=== PATIENT | female | born 1975 | race Caucasian/White ===

== ENCOUNTER 2017-08-25 11:45 | Inpatient (IN) | payer OTHER ==
[~2017-08-25] VITALS: Ht 162.6 cm; Wt 135.3 kg
[~2017-08-25 11:45] MED LIST: ATOR20 PO; CHOL10002 PO; CLIN300 PO; CYCL10 PO; DIAZ5 PO; FENO160 PO; INSULANPEN SC; LEVSOD150 PO; METCAR500 PO; METF500 PO; OXYC30ER PO; OXYC5 PO; Oxycontin60 MG; PIOG15 PO; PROBIOTIC1 EAC1 PO; PROCODE120 PO
[2017-08-25 16:08] LABS: BASOPHILS ABSOLUTE AUTO 0.07 K/mm3 (0.00-0.23); BASOPHILS PERCENT AUTO 1 % (0-2); EOSINOPHILS ABSOLUTE AUTO 0.22 K/mm3 (0.00-0.68); EOSINOPHILS PERCENT AUTO 2 % (0-6); Hemoglobin 13.2 g/dL (11.5-16.0); IMMATURE GRAN PERCENT AUTO 1 % (0-1); LYMPHOCYTES PERCENT AUTO 7 % (21-46); MONOCYTES ABSOLUTE AUTO 0.67 K/mm3 (0.16-1.47); MONOCYTES PERCENT AUTO 5 % (4-13); Mean Corpuscular HGB 29.1 pg (26.0-34.0); Mean Corpuscular Volume 88 fL (80-100); Mean Platelet Volume 9.2 fL (9.1-12.4); NEUTROPHILS ABSOLUTE AUTO 11.93 K/mm3 (1.96-9.15); NEUTROPHILS PERCENT AUTO 86 % (41-73); Platelet Count 331 K/mm3 (150-400); RDW Coefficient Variation 14.4 % (11.7-14.2); RDW Standard Deviation 46.7 fL (35.1-46.3); Red Blood Cell Count 4.54 M/mm3 (3.80-5.20); White Blood Cell Count 13.89 K/mm3 (4.00-11.30)
[2017-08-25 16:29] LABS: Albumin, Blood 3.1 g/dL (3.4-5.0); Albumin/Globulin Ratio 0.5 (0.8-1.8); Bilirubin, Total 0.8 mg/dL (0.1-1.0); Bun/Creatinine Ratio 16.2 (12.0-20.0); Calcium, Blood 9.8 mg/dL (8.5-10.1); Creatinine, Blood 1.6 mg/dL (0.40-1.00); Globulin, Blood 5.9 g/dL (2.2-4.0); Potassium, Blood 4.1 mmol/L (3.5-5.5)
[2017-08-25] MEDS ORDERED: LEVSOD150 PO (21:02)
[2017-08-25] MEDS ORDERED: ACET500 PO (21:05)
[2017-08-26 05:27] LABS: BASOPHILS ABSOLUTE AUTO 0.06 K/mm3 (0.00-0.23); BASOPHILS PERCENT AUTO 1 % (0-2); EOSINOPHILS ABSOLUTE AUTO 0.21 K/mm3 (0.00-0.68); EOSINOPHILS PERCENT AUTO 2 % (0-6); Hematocrit 33.8 % (33.0-51.0); Hemoglobin 11.1 g/dL (11.5-16.0); IMMATURE GRAN ABSOLUTE AUTO 0.11 K/mm3 (0.00-0.10); IMMATURE GRAN PERCENT AUTO 1 % (0-1); LYMPHOCYTES ABSOLUTE AUTO 0.76 K/mm3 (0.84-5.20); LYMPHOCYTES PERCENT AUTO 6 % (21-46); MONOCYTES ABSOLUTE AUTO 0.66 K/mm3 (0.16-1.47); MONOCYTES PERCENT AUTO 5 % (4-13); Mean Corpuscular HGB 28.5 pg (26.0-34.0); Mean Corpuscular HGB Conc 32.8 g/dL (31.5-36.5); Mean Corpuscular Volume 87 fL (80-100); Mean Platelet Volume 9.3 fL (9.1-12.4); NEUTROPHILS ABSOLUTE AUTO 11.07 K/mm3 (1.96-9.15); NEUTROPHILS PERCENT AUTO 86 % (41-73); Platelet Count 318 K/mm3 (150-400); RDW Coefficient Variation 14.4 % (11.7-14.2); RDW Standard Deviation 46.2 fL (35.1-46.3); White Blood Cell Count 12.87 K/mm3 (4.00-11.30)
[2017-08-26 05:49] LABS: Bun/Creatinine Ratio 16.1 (12.0-20.0); Creatinine, Blood 1.37 mg/dL (0.40-1.00); Potassium, Blood 3.8 mmol/L (3.5-5.5)
[2017-08-26 05:50] LABS: Calcium, Blood 8.5 mg/dL (8.5-10.1)
[2017-08-27 05:34] LABS: BASOPHILS ABSOLUTE AUTO 0.06 K/mm3 (0.00-0.23); BASOPHILS PERCENT AUTO 0 % (0-2); EOSINOPHILS ABSOLUTE AUTO 0.13 K/mm3 (0.00-0.68); EOSINOPHILS PERCENT AUTO 1 % (0-6); Hemoglobin 11.3 g/dL (11.5-16.0); IMMATURE GRAN ABSOLUTE AUTO 0.16 K/mm3 (0.00-0.10); IMMATURE GRAN PERCENT AUTO 1 % (0-1); LYMPHOCYTES ABSOLUTE AUTO 0.94 K/mm3 (0.84-5.20); LYMPHOCYTES PERCENT AUTO 7 % (21-46); MONOCYTES ABSOLUTE AUTO 0.89 K/mm3 (0.16-1.47); MONOCYTES PERCENT AUTO 7 % (4-13); Mean Corpuscular HGB 28.4 pg (26.0-34.0); Mean Corpuscular HGB Conc 33.2 g/dL (31.5-36.5); Mean Corpuscular Volume 85 fL (80-100); Mean Platelet Volume 9.4 fL (9.1-12.4); NEUTROPHILS ABSOLUTE AUTO 11.25 K/mm3 (1.96-9.15); NEUTROPHILS PERCENT AUTO 84 % (41-73); Platelet Count 330 K/mm3 (150-400); RDW Coefficient Variation 14.4 % (11.7-14.2); RDW Standard Deviation 45.1 fL (35.1-46.3); Red Blood Cell Count 3.98 M/mm3 (3.80-5.20); White Blood Cell Count 13.43 K/mm3 (4.00-11.30)
[2017-08-27 05:58] LABS: Bun/Creatinine Ratio 14.2 (12.0-20.0); Calcium, Blood 8.9 mg/dL (8.5-10.1); Creatinine, Blood 1.41 mg/dL (0.40-1.00); Potassium, Blood 3.8 mmol/L (3.5-5.5)
[2017-08-27 09:36] LABS: Vancomycin, Trough 24.3 ug/mL (5.0-10.0)
[2017-08-28 05:14] LABS: BASOPHILS ABSOLUTE AUTO 0.06 K/mm3 (0.00-0.23); BASOPHILS PERCENT AUTO 1 % (0-2); EOSINOPHILS ABSOLUTE AUTO 0.22 K/mm3 (0.00-0.68); EOSINOPHILS PERCENT AUTO 2 % (0-6); Hematocrit 32.5 % (33.0-51.0); Hemoglobin 10.7 g/dL (11.5-16.0); IMMATURE GRAN ABSOLUTE AUTO 0.28 K/mm3 (0.00-0.10); IMMATURE GRAN PERCENT AUTO 2 % (0-1); LYMPHOCYTES ABSOLUTE AUTO 1.09 K/mm3 (0.84-5.20); LYMPHOCYTES PERCENT AUTO 8 % (21-46); MONOCYTES ABSOLUTE AUTO 0.78 K/mm3 (0.16-1.47); MONOCYTES PERCENT AUTO 6 % (4-13); Mean Corpuscular HGB 28.6 pg (26.0-34.0); Mean Corpuscular HGB Conc 32.9 g/dL (31.5-36.5); Mean Corpuscular Volume 87 fL (80-100); Mean Platelet Volume 9.5 fL (9.1-12.4); NEUTROPHILS ABSOLUTE AUTO 10.52 K/mm3 (1.96-9.15); NEUTROPHILS PERCENT AUTO 81 % (41-73); Platelet Count 346 K/mm3 (150-400); RDW Coefficient Variation 14.6 % (11.7-14.2); RDW Standard Deviation 46.9 fL (35.1-46.3); Red Blood Cell Count 3.74 M/mm3 (3.80-5.20); White Blood Cell Count 12.95 K/mm3 (4.00-11.30)
[2017-08-28 05:37] LABS: Bun/Creatinine Ratio 14.6 (12.0-20.0); Calcium, Blood 9.1 mg/dL (8.5-10.1); Creatinine, Blood 1.37 mg/dL (0.40-1.00); Potassium, Blood 3.8 mmol/L (3.5-5.5)
[2017-08-29 09:05] LABS: Vancomycin, Trough 18.9 ug/mL (5.0-10.0)
[2017-08-31 10:27] LABS: Bun/Creatinine Ratio 15.9 (12.0-20.0); Calcium, Blood 8.4 mg/dL (8.5-10.1); Creatinine, Blood 1.38 mg/dL (0.40-1.00); Potassium, Blood 3.8 mmol/L (3.5-5.5)
[2017-08-31 11:32] LABS: Creatinine, Blood 1.38 mg/dL (0.40-1.00)
[2017-08-31 11:33] LABS: Vancomycin, Trough 24.4 ug/mL (5.0-10.0)
[2017-09-03 05:44] LABS: Bun/Creatinine Ratio 10.6 (12.0-20.0); Calcium, Blood 8.5 mg/dL (8.5-10.1); Creatinine, Blood 1.42 mg/dL (0.40-1.00)
[2017-09-04] MEDS ORDERED: ROXICODONE5 MG PO (13:20)
[2017-09-04] MEDS ORDERED: METF500 PO (13:20)
[2017-09-04] MEDS ORDERED: DOCU100 PO (13:21)
[2017-09-04] MEDS ORDERED: Pedi-Dri 100,0060 GM TOP (13:22)
[2017-09-04] MEDS ORDERED: Normal Saline Fl2 ML IR (13:23)
[2017-09-04] MEDS ORDERED: MIRALAX17 GM PO (13:23)
[2017-09-04] MEDS ORDERED: Augmentin 875-1 EACH PO (13:24)
[2017-09-04] MEDS ORDERED: Atarax10 MG PO (13:25)
[2017-11-13] MEDS ORDERED: HYDHCL25 PO (10:40)
[2018-03-07] MEDS ORDERED: PIOG15 PO (13:38)
[2018-03-07] MEDS ORDERED: INSULANPEN (13:38)
[2018-03-07] MEDS ORDERED: METF500C PO (13:38)
[2018-03-07] MEDS ORDERED: LEVSOD150 PO (13:39)
[2018-03-07] MEDS ORDERED: ATOR10 PO (13:39)
[2018-03-07] MEDS ORDERED: FENO160 PO (13:39)
[2018-03-07] MEDS ORDERED: CYCL10 (13:39)
[2018-03-07] MEDS ORDERED: OXYC5 (13:40)
[2018-03-07] MEDS ORDERED: PROMETH-CODEIN 65 ML (13:40)
[2018-03-07] MEDS ORDERED: HYDPAM100 (13:40)
[2018-03-07] MEDS ORDERED: CYCL10 PO (14:22)
== END 2017-09-04 18:10 | disposition home or self-care (01) | DRG 854 ==
LOC: ER 11:45 → MEDS 16:32
PROVIDERS: Emergency Medicine; Hospitalist; Internal Medicine; Surgery
PROC: 3E0234Z Introduction of Serum, Toxoid and Vaccine into Muscle, Percutaneous Approach (ICD-10-PCS; 2017-08-25)
PROC: 0JDB0ZZ Extraction of Perineum Subcutaneous Tissue and Fascia, Open Approach (ICD-10-PCS; principal; 2017-08-30 17:30)
DX: A41.9 Sepsis, unspecified organism (principal); L02.214 Cutaneous abscess of groin; E11.22 Type 2 diabetes mellitus with diabetic chronic kidney disease; N18.3 Chronic kidney disease, stage 3 (moderate); L03.314 Cellulitis of groin; Z68.43 Body mass index [BMI] 50.0-59.9, adult; E66.01 Morbid (severe) obesity due to excess calories; Z23 Encounter for immunization; E78.5 Hyperlipidemia, unspecified; E03.9 Hypothyroidism, unspecified; F17.210 Nicotine dependence, cigarettes, uncomplicated; G89.29 Other chronic pain; Z86.14 Personal history of Methicillin resistant Staphylococcus aureus infection
CPT/HCPCS: 36415; 72193; 80048; 80053; 80202; 82565; 82947; 85025; 87070; 87075; 87076; 87147; 87185; 87205; 88304; 93005; 93010; 96365; 96375; 99283; 99285; J0295; J1642; J1650; J1815; J1885; J2250; J2270; J2405; J2543; J3010; J3370; J3480; J7030; J7050; J7120; Q2038; Q9967

== ENCOUNTER 2017-09-07 13:23 | Day surgery (SDC) | payer OTHER ==
[~2017-09-07 13:23] MED LIST changes: +ACET500 PO; +Atarax10 MG PO; +Augmentin 875-1 EACH PO; +DOCU100 PO; +MIRALAX17 GM PO; +Normal Saline Fl2 ML IR; +Pedi-Dri 100,0060 GM TOP; +ROXICODONE5 MG PO
[2017-11-13] MEDS ORDERED: HYDHCL25 PO (10:40)
[2018-03-07] MEDS ORDERED: METF500C PO (13:38)
[2018-03-07] MEDS ORDERED: PIOG15 PO (13:38)
[2018-03-07] MEDS ORDERED: INSULANPEN (13:38)
[2018-03-07] MEDS ORDERED: FENO160 PO (13:39)
[2018-03-07] MEDS ORDERED: LEVSOD150 PO (13:39)
[2018-03-07] MEDS ORDERED: CYCL10 (13:39)
[2018-03-07] MEDS ORDERED: ATOR10 PO (13:39)
[2018-03-07] MEDS ORDERED: PROMETH-CODEIN 65 ML (13:40)
[2018-03-07] MEDS ORDERED: OXYC5 (13:40)
[2018-03-07] MEDS ORDERED: HYDPAM100 (13:40)
[2018-03-07] MEDS ORDERED: CYCL10 PO (14:22)
== END 2017-09-07 22:44 | disposition home or self-care (01) ==
LOC: WOUND 13:23
PROC: 2W13X6Z Compression of Abdominal Wall using Pressure Dressing (ICD-10-PCS; principal; 2017-09-07)
DX: Z48.00 Encounter for change or removal of nonsurgical wound dressing (principal); M79.3 Panniculitis, unspecified; E66.01 Morbid (severe) obesity due to excess calories; E05.90 Thyrotoxicosis, unspecified without thyrotoxic crisis or storm; E28.2 Polycystic ovarian syndrome
CPT/HCPCS: G0463

== ENCOUNTER 2017-09-14 11:00 | Day surgery (SDC) | payer OTHER ==
[2017-11-13] MEDS ORDERED: HYDHCL25 PO (10:40)
[2018-03-07] MEDS ORDERED: PIOG15 PO (13:38)
[2018-03-07] MEDS ORDERED: METF500C PO (13:38)
[2018-03-07] MEDS ORDERED: INSULANPEN (13:38)
[2018-03-07] MEDS ORDERED: FENO160 PO (13:39)
[2018-03-07] MEDS ORDERED: LEVSOD150 PO (13:39)
[2018-03-07] MEDS ORDERED: CYCL10 (13:39)
[2018-03-07] MEDS ORDERED: ATOR10 PO (13:39)
[2018-03-07] MEDS ORDERED: OXYC5 (13:40)
[2018-03-07] MEDS ORDERED: HYDPAM100 (13:40)
[2018-03-07] MEDS ORDERED: PROMETH-CODEIN 65 ML (13:40)
[2018-03-07] MEDS ORDERED: CYCL10 PO (14:22)
== END 2017-09-14 14:21 | disposition home or self-care (01) ==
LOC: WOUND 11:00
PROC: 2W13X6Z Compression of Abdominal Wall using Pressure Dressing (ICD-10-PCS; principal; 2017-09-14)
DX: Z48.00 Encounter for change or removal of nonsurgical wound dressing (principal); M79.3 Panniculitis, unspecified; E66.01 Morbid (severe) obesity due to excess calories; Z90.01 Acquired absence of eye; E11.65 Type 2 diabetes mellitus with hyperglycemia; E05.90 Thyrotoxicosis, unspecified without thyrotoxic crisis or storm

== ENCOUNTER 2017-09-22 00:42 | Day surgery (SDC) | payer OTHER ==
[2017-11-13] MEDS ORDERED: HYDHCL25 PO (10:40)
[2018-03-07] MEDS ORDERED: PIOG15 PO (13:38)
[2018-03-07] MEDS ORDERED: INSULANPEN (13:38)
[2018-03-07] MEDS ORDERED: METF500C PO (13:38)
[2018-03-07] MEDS ORDERED: ATOR10 PO (13:39)
[2018-03-07] MEDS ORDERED: LEVSOD150 PO (13:39)
[2018-03-07] MEDS ORDERED: CYCL10 (13:39)
[2018-03-07] MEDS ORDERED: FENO160 PO (13:39)
[2018-03-07] MEDS ORDERED: PROMETH-CODEIN 65 ML (13:40)
[2018-03-07] MEDS ORDERED: OXYC5 (13:40)
[2018-03-07] MEDS ORDERED: HYDPAM100 (13:40)
[2018-03-07] MEDS ORDERED: CYCL10 PO (14:22)
== END 2017-09-22 23:58 | disposition home or self-care (01) ==
LOC: WOUND 00:42
PROC: 2W13X6Z Compression of Abdominal Wall using Pressure Dressing (ICD-10-PCS; principal; 2017-09-22)
DX: Z48.01 Encounter for change or removal of surgical wound dressing (principal); M79.3 Panniculitis, unspecified; E66.01 Morbid (severe) obesity due to excess calories; E11.65 Type 2 diabetes mellitus with hyperglycemia; E05.90 Thyrotoxicosis, unspecified without thyrotoxic crisis or storm
CPT/HCPCS: G0463

== ENCOUNTER 2017-09-28 00:24 | Day surgery (SDC) | payer OTHER ==
[2017-11-13] MEDS ORDERED: HYDHCL25 PO (10:40)
[2018-03-07] MEDS ORDERED: PIOG15 PO (13:38)
[2018-03-07] MEDS ORDERED: METF500C PO (13:38)
[2018-03-07] MEDS ORDERED: INSULANPEN (13:38)
[2018-03-07] MEDS ORDERED: LEVSOD150 PO (13:39)
[2018-03-07] MEDS ORDERED: ATOR10 PO (13:39)
[2018-03-07] MEDS ORDERED: FENO160 PO (13:39)
[2018-03-07] MEDS ORDERED: CYCL10 (13:39)
[2018-03-07] MEDS ORDERED: HYDPAM100 (13:40)
[2018-03-07] MEDS ORDERED: PROMETH-CODEIN 65 ML (13:40)
[2018-03-07] MEDS ORDERED: OXYC5 (13:40)
[2018-03-07] MEDS ORDERED: CYCL10 PO (14:22)
== END 2017-09-28 23:13 | disposition home or self-care (01) ==
LOC: WOUND 00:24
PROC: 2W03X6Z Change Pressure Dressing on Abdominal Wall (ICD-10-PCS; principal; 2017-09-28)
DX: Z48.00 Encounter for change or removal of nonsurgical wound dressing (principal); L03.311 Cellulitis of abdominal wall; M79.3 Panniculitis, unspecified; E66.01 Morbid (severe) obesity due to excess calories; E03.9 Hypothyroidism, unspecified; Z86.14 Personal history of Methicillin resistant Staphylococcus aureus infection
CPT/HCPCS: 87081; G0463

== ENCOUNTER 2017-10-06 00:11 | Day surgery (SDC) | payer OTHER ==
[2017-11-13] MEDS ORDERED: HYDHCL25 PO (10:40)
[2018-03-07] MEDS ORDERED: PIOG15 PO (13:38)
[2018-03-07] MEDS ORDERED: INSULANPEN (13:38)
[2018-03-07] MEDS ORDERED: METF500C PO (13:38)
[2018-03-07] MEDS ORDERED: ATOR10 PO (13:39)
[2018-03-07] MEDS ORDERED: LEVSOD150 PO (13:39)
[2018-03-07] MEDS ORDERED: FENO160 PO (13:39)
[2018-03-07] MEDS ORDERED: CYCL10 (13:39)
[2018-03-07] MEDS ORDERED: HYDPAM100 (13:40)
[2018-03-07] MEDS ORDERED: OXYC5 (13:40)
[2018-03-07] MEDS ORDERED: PROMETH-CODEIN 65 ML (13:40)
[2018-03-07] MEDS ORDERED: CYCL10 PO (14:22)
== END 2017-10-06 22:51 | disposition home or self-care (01) ==
LOC: WOUND 00:11
PROC: 2W13X6Z Compression of Abdominal Wall using Pressure Dressing (ICD-10-PCS; principal; 2017-10-06)
DX: M79.3 Panniculitis, unspecified (principal); E66.01 Morbid (severe) obesity due to excess calories; E11.9 Type 2 diabetes mellitus without complications; Z86.14 Personal history of Methicillin resistant Staphylococcus aureus infection
CPT/HCPCS: 87070; 87075; 87077; 87147; 87186; 87205; G0463

== ENCOUNTER 2017-10-13 01:11 | Day surgery (SDC) | payer OTHER ==
[2017-11-13] MEDS ORDERED: HYDHCL25 PO (10:40)
[2018-03-07] MEDS ORDERED: PIOG15 PO (13:38)
[2018-03-07] MEDS ORDERED: METF500C PO (13:38)
[2018-03-07] MEDS ORDERED: INSULANPEN (13:38)
[2018-03-07] MEDS ORDERED: CYCL10 (13:39)
[2018-03-07] MEDS ORDERED: ATOR10 PO (13:39)
[2018-03-07] MEDS ORDERED: FENO160 PO (13:39)
[2018-03-07] MEDS ORDERED: LEVSOD150 PO (13:39)
[2018-03-07] MEDS ORDERED: PROMETH-CODEIN 65 ML (13:40)
[2018-03-07] MEDS ORDERED: OXYC5 (13:40)
[2018-03-07] MEDS ORDERED: HYDPAM100 (13:40)
[2018-03-07] MEDS ORDERED: CYCL10 PO (14:22)
== END 2017-10-13 13:26 | disposition home or self-care (01) ==
LOC: ATC 01:11
DX: Z45.2 Encounter for adjustment and management of vascular access device (principal); F17.210 Nicotine dependence, cigarettes, uncomplicated
CPT/HCPCS: 96523; J1642

== ENCOUNTER 2017-10-13 13:30 | Day surgery (SDC) | payer OTHER ==
[2017-11-13] MEDS ORDERED: HYDHCL25 PO (10:40)
[2018-03-07] MEDS ORDERED: PIOG15 PO (13:38)
[2018-03-07] MEDS ORDERED: INSULANPEN (13:38)
[2018-03-07] MEDS ORDERED: METF500C PO (13:38)
[2018-03-07] MEDS ORDERED: CYCL10 (13:39)
[2018-03-07] MEDS ORDERED: ATOR10 PO (13:39)
[2018-03-07] MEDS ORDERED: FENO160 PO (13:39)
[2018-03-07] MEDS ORDERED: LEVSOD150 PO (13:39)
[2018-03-07] MEDS ORDERED: HYDPAM100 (13:40)
[2018-03-07] MEDS ORDERED: OXYC5 (13:40)
[2018-03-07] MEDS ORDERED: PROMETH-CODEIN 65 ML (13:40)
[2018-03-07] MEDS ORDERED: CYCL10 PO (14:22)
== END 2017-10-13 22:58 | disposition home or self-care (01) ==
LOC: WOUND 13:30
PROC: 0W9F3ZZ Drainage of Abdominal Wall, Percutaneous Approach (ICD-10-PCS; principal; 2017-10-13)
PROC: 2W13X6Z Compression of Abdominal Wall using Pressure Dressing (ICD-10-PCS; principal; 2017-10-13)
DX: M79.3 Panniculitis, unspecified (principal); E66.01 Morbid (severe) obesity due to excess calories; Z22.322 Carrier or suspected carrier of Methicillin resistant Staphylococcus aureus; E11.65 Type 2 diabetes mellitus with hyperglycemia; E05.90 Thyrotoxicosis, unspecified without thyrotoxic crisis or storm
CPT/HCPCS: G0463

== ENCOUNTER 2017-10-20 00:51 | Day surgery (SDC) | payer OTHER ==
[2017-11-13] MEDS ORDERED: HYDHCL25 PO (10:40)
[2018-03-07] MEDS ORDERED: PIOG15 PO (13:38)
[2018-03-07] MEDS ORDERED: METF500C PO (13:38)
[2018-03-07] MEDS ORDERED: INSULANPEN (13:38)
[2018-03-07] MEDS ORDERED: FENO160 PO (13:39)
[2018-03-07] MEDS ORDERED: CYCL10 (13:39)
[2018-03-07] MEDS ORDERED: LEVSOD150 PO (13:39)
[2018-03-07] MEDS ORDERED: ATOR10 PO (13:39)
[2018-03-07] MEDS ORDERED: HYDPAM100 (13:40)
[2018-03-07] MEDS ORDERED: PROMETH-CODEIN 65 ML (13:40)
[2018-03-07] MEDS ORDERED: OXYC5 (13:40)
[2018-03-07] MEDS ORDERED: CYCL10 PO (14:22)
== END 2017-10-20 17:02 | disposition home or self-care (01) ==
LOC: WOUND 00:51
PROC: 2W13X6Z Compression of Abdominal Wall using Pressure Dressing (ICD-10-PCS; principal; 2017-10-20)
DX: M79.3 Panniculitis, unspecified (principal); E66.01 Morbid (severe) obesity due to excess calories; Z22.322 Carrier or suspected carrier of Methicillin resistant Staphylococcus aureus; E11.9 Type 2 diabetes mellitus without complications
CPT/HCPCS: G0463

== ENCOUNTER 2017-10-27 13:18 | Day surgery (SDC) | payer OTHER ==
[2017-11-13] MEDS ORDERED: HYDHCL25 PO (10:40)
[2018-03-07] MEDS ORDERED: PIOG15 PO (13:38)
[2018-03-07] MEDS ORDERED: INSULANPEN (13:38)
[2018-03-07] MEDS ORDERED: METF500C PO (13:38)
[2018-03-07] MEDS ORDERED: LEVSOD150 PO (13:39)
[2018-03-07] MEDS ORDERED: FENO160 PO (13:39)
[2018-03-07] MEDS ORDERED: CYCL10 (13:39)
[2018-03-07] MEDS ORDERED: ATOR10 PO (13:39)
[2018-03-07] MEDS ORDERED: HYDPAM100 (13:40)
[2018-03-07] MEDS ORDERED: PROMETH-CODEIN 65 ML (13:40)
[2018-03-07] MEDS ORDERED: OXYC5 (13:40)
[2018-03-07] MEDS ORDERED: CYCL10 PO (14:22)
== END 2017-10-27 15:59 | disposition home or self-care (01) ==
LOC: WOUND 13:18
PROC: 2W03X6Z Change Pressure Dressing on Abdominal Wall (ICD-10-PCS; principal; 2017-10-27)
DX: Z48.00 Encounter for change or removal of nonsurgical wound dressing (principal); E11.65 Type 2 diabetes mellitus with hyperglycemia; E11.622 Type 2 diabetes mellitus with other skin ulcer; L98.492 Non-pressure chronic ulcer of skin of other sites with fat layer exposed; M79.3 Panniculitis, unspecified; Z22.322 Carrier or suspected carrier of Methicillin resistant Staphylococcus aureus; E03.9 Hypothyroidism, unspecified; E28.2 Polycystic ovarian syndrome; R51 Headache; E66.01 Morbid (severe) obesity due to excess calories; Z68.43 Body mass index [BMI] 50.0-59.9, adult
CPT/HCPCS: G0463

== ENCOUNTER 2017-11-10 13:24 | Day surgery (SDC) | payer OTHER ==
[2017-11-13] MEDS ORDERED: HYDHCL25 PO (10:40)
== END 2017-11-10 22:48 | disposition home or self-care (01) ==
LOC: WOUND
DX: Z48.00 Encounter for change or removal of nonsurgical wound dressing (principal); M79.3 Panniculitis, unspecified; Z22.322 Carrier or suspected carrier of Methicillin resistant Staphylococcus aureus; E66.01 Morbid (severe) obesity due to excess calories; E11.9 Type 2 diabetes mellitus without complications; Z86.14 Personal history of Methicillin resistant Staphylococcus aureus infection
CPT/HCPCS: G0463

== ENCOUNTER 2017-11-21 00:26 | Day surgery (SDC) | payer OTHER ==
[~2017-11-21 00:26] MED LIST changes: +HYDHCL25 PO
== END 2017-11-21 22:53 | disposition home or self-care (01) ==
LOC: WOUND
DX: Z48.00 Encounter for change or removal of nonsurgical wound dressing (principal); M79.3 Panniculitis, unspecified; E66.01 Morbid (severe) obesity due to excess calories; Z22.322 Carrier or suspected carrier of Methicillin resistant Staphylococcus aureus; E11.9 Type 2 diabetes mellitus without complications; Z86.14 Personal history of Methicillin resistant Staphylococcus aureus infection
CPT/HCPCS: G0463

== ENCOUNTER 2017-11-28 13:53 | Day surgery (SDC) | payer OTHER | END 2017-11-28 22:52 | disposition home or self-care (01) | LOC: WOUND 13:53 | DX: Z48.00 Encounter for change or removal of nonsurgical wound dressing (principal); M79.3 Panniculitis, unspecified; E66.01 Morbid (severe) obesity due to excess calories; Z22.322 Carrier or suspected carrier of Methicillin resistant Staphylococcus aureus; E11.9 Type 2 diabetes mellitus without complications | CPT/HCPCS: G0463 ==

== ENCOUNTER 2017-12-13 00:43 | Day surgery (SDC) | payer OTHER | END 2017-12-13 10:30 | disposition home or self-care (01) | LOC: ATC 00:43 | DX: Z45.2 Encounter for adjustment and management of vascular access device (principal); E11.9 Type 2 diabetes mellitus without complications; E03.9 Hypothyroidism, unspecified | CPT/HCPCS: 96523; J1642 ==

== ENCOUNTER 2018-01-17 00:52 | Day surgery (SDC) | payer OTHER | END 2018-01-17 10:55 | disposition home or self-care (01) | LOC: ATC 00:52 | DX: Z45.2 Encounter for adjustment and management of vascular access device (principal); E11.9 Type 2 diabetes mellitus without complications; E03.9 Hypothyroidism, unspecified; Z79.4 Long term (current) use of insulin | CPT/HCPCS: 96523; J1642 ==

== ENCOUNTER 2018-03-14 00:18 | Day surgery (SDC) | payer OTHER ==
[~2018-03-14 00:18] MED LIST changes: +ATOR10 PO; +CYCL10; +HYDPAM100; +INSULANPEN; +METF500C PO; +OXYC5; +PROMETH-CODEIN 65 ML
[2018-03-14] MEDS ORDERED: AMOCLA500 PO (11:25)
== END 2018-03-14 11:30 | disposition home or self-care (01) ==
LOC: ATC 00:18
DX: Z45.2 Encounter for adjustment and management of vascular access device (principal); M79.3 Panniculitis, unspecified; E66.01 Morbid (severe) obesity due to excess calories; E11.9 Type 2 diabetes mellitus without complications; F17.210 Nicotine dependence, cigarettes, uncomplicated; Z79.4 Long term (current) use of insulin; Z91.81 History of falling
CPT/HCPCS: 96523; J1642

== ENCOUNTER 2018-04-26 00:27 | Day surgery (SDC) | payer OTHER ==
[~2018-04-26 00:27] MED LIST changes: +AMOCLA500 PO
[2018-04-26] MEDS ORDERED: CYCL10 PO (09:22)
== END 2018-04-26 09:30 | disposition home or self-care (01) ==
LOC: ATC 00:27
DX: Z45.2 Encounter for adjustment and management of vascular access device (principal)
CPT/HCPCS: 96523; J1642

== ENCOUNTER 2018-08-06 00:03 | Day surgery (SDC) | payer OTHER | END 2018-08-06 13:46 | disposition home or self-care (01) | LOC: ATC 00:03 | DX: Z45.2 Encounter for adjustment and management of vascular access device (principal); Z22.322 Carrier or suspected carrier of Methicillin resistant Staphylococcus aureus | CPT/HCPCS: 96523; J1642 ==

== ENCOUNTER 2018-10-30 23:56 | Emergency (ER) | payer OTHER ==
[~2018-10-30] VITALS: Ht 162.6 cm; Wt 131.5 kg
[2018-10-31 01:00] LABS: Calcium, Ionized (POC) 1.19 mmol/L (1.10-1.46); Chloride (POC) 102 mmol/L (98-108); Creatinine (POC) 1.5 mg/dL (0.6-1.0); Glucose (ISTAT POC) 131 mg/dL (70-99); Hemoglobin (POC) 12.9 g/dL (12.0-16.0); Potassium (POC) 3.9 mmol/L (3.5-5.5); Sodium (POC) 137 mmol/L (135-148); Total CO2 (POC) 23 mmol/L (21-32)
[2018-10-31] MEDS ORDERED: Vibramycin100 MG PO (01:07)
[2018-10-31] MEDS ORDERED: CEPH500 PO (01:07)
== END 2018-10-31 01:20 | disposition home or self-care (01) ==
LOC: ER 23:56
PROVIDERS: Physician Assistant
DX: L03.311 Cellulitis of abdominal wall (principal); Z88.2 Allergy status to sulfonamides; Z79.899 Other long term (current) drug therapy; Z79.4 Long term (current) use of insulin; Z79.891 Long term (current) use of opiate analgesic; E11.9 Type 2 diabetes mellitus without complications; F17.210 Nicotine dependence, cigarettes, uncomplicated
CPT/HCPCS: 36415; 80047; 85014; 99283

== ENCOUNTER 2019-05-23 23:42 | Emergency (ER) | payer OTHER ==
[~2019-05-23] VITALS: Ht 162.6 cm; Wt 127.0 kg
[~2019-05-23 23:42] MED LIST changes: +CEPH500 PO; +Vibramycin100 MG PO
[2019-05-24 00:50] LABS: Source, Urine Clean Catch
[2019-05-24 00:52] LABS: Appearance, Urine Cloudy (Clear); Bilirubin, Urine Neg (Neg); Blood, Urine 4+ (Neg); Color, Urine Yellow (P-Yellow); Glucose Qualitative, Urine Neg (Neg); Ketones, Urine Neg (Neg); Leukocyte Esterase, Urine 3+ (Neg); Nitrite, Urine Pos (Neg); Protein, Urine 3+ (Neg); Specific Gravity, Urine 1.015 (1.003-1.022); Urobilinogen, Urine NORM (Normal)
[2019-05-24 00:58] LABS: Bacteria Many /hpf; Red Blood Cells, Urine Rare /hpf (0-2); Squamous Epithelial Cells Few /hpf (Few); White Blood Cells, Urine TNTC /hpf (0-5)
[2019-05-24 01:50] LABS: Albumin, Blood 3.1 g/dL (3.4-5.0); Albumin/Globulin Ratio 0.7 (0.8-1.8); Bilirubin, Total 0.4 mg/dL (0.1-1.0); Bun/Creatinine Ratio 18.1 (12.0-20.0); Calcium, Blood 8.8 mg/dL (8.5-10.1); Creatinine, Blood 1.55 mg/dL (0.40-1.00); Globulin, Blood 4.6 g/dL (2.2-4.0); Potassium, Blood 3.7 mmol/L (3.5-5.5); Total Protein, Blood 7.7 g/dL (6.4-8.2)
[2019-05-24 01:53] LABS: BASOPHILS ABSOLUTE AUTO 0.07 K/mm3 (0.00-0.23); BASOPHILS PERCENT AUTO 1 % (0-2); EOSINOPHILS ABSOLUTE AUTO 0.22 K/mm3 (0.00-0.68); EOSINOPHILS PERCENT AUTO 3 % (0-6); Hemoglobin 10.4 g/dL (11.5-16.0); IMMATURE GRAN ABSOLUTE AUTO 0.33 K/mm3 (0.00-0.10); IMMATURE GRAN PERCENT AUTO 4 % (0-1); LYMPHOCYTES ABSOLUTE AUTO 1.48 K/mm3 (0.84-5.20); LYMPHOCYTES PERCENT AUTO 17 % (21-46); MONOCYTES ABSOLUTE AUTO 0.37 K/mm3 (0.16-1.47); MONOCYTES PERCENT AUTO 4 % (4-13); Mean Corpuscular HGB 29.3 pg (26.0-34.0); Mean Corpuscular HGB Conc 32.5 g/dL (31.5-36.5); Mean Corpuscular Volume 90 fL (80-100); NEUTROPHILS ABSOLUTE AUTO 6.16 K/mm3 (1.96-9.15); NEUTROPHILS PERCENT AUTO 72 % (41-73); NRBC ABSOLUTE 0.02 K/mm3 (0.00-0.02); NRBC Auto 0.2 /100 WBC (0.0-0.2); RDW Coefficient Variation 15.7 % (11.7-14.2); RDW Standard Deviation 51.9 fL (35.1-46.3); Red Blood Cell Count 3.55 M/mm3 (3.80-5.20); White Blood Cell Count 8.63 K/mm3 (4.00-11.30)
[2019-05-24 01:54] LABS: Mean Platelet Volume 9.8 fL (9.1-12.4); Platelet Count 213 K/mm3 (150-400)
[2019-05-24] MEDS ORDERED: Keflex500 MG PO (02:07)
== END 2019-05-24 02:53 | disposition home or self-care (01) ==
LOC: ER 23:42
PROVIDERS: Emergency Medicine
DX: N39.0 Urinary tract infection, site not specified (principal); E86.0 Dehydration; E66.01 Morbid (severe) obesity due to excess calories; E11.9 Type 2 diabetes mellitus without complications; C64.9 Malignant neoplasm of unspecified kidney, except renal pelvis; E05.90 Thyrotoxicosis, unspecified without thyrotoxic crisis or storm; F17.210 Nicotine dependence, cigarettes, uncomplicated; Z68.42 Body mass index [BMI] 45.0-49.9, adult; Z88.2 Allergy status to sulfonamides; Z79.899 Other long term (current) drug therapy; Z79.4 Long term (current) use of insulin
CPT/HCPCS: 36415; 80053; 81001; 81025; 85025; 87077; 87086; 87186; 96365; 99284-25; A9270-GY; J0696; J7030

== ENCOUNTER 2019-09-13 21:38 | Emergency (ER) | payer OTHER ==
[~2019-09-13] VITALS: Ht 162.6 cm; Wt 127.0 kg
[~2019-09-13 21:38] MED LIST changes: +Keflex500 MG PO
== END 2019-09-13 23:51 | disposition home or self-care (01) ==
LOC: ER 21:38
DX: S80.02XA Contusion of left knee, initial encounter (principal); S30.0XXA Contusion of lower back and pelvis, initial encounter; E11.9 Type 2 diabetes mellitus without complications; F17.210 Nicotine dependence, cigarettes, uncomplicated; Z79.4 Long term (current) use of insulin; Z79.899 Other long term (current) drug therapy; W01.0XXA Fall on same level from slipping, tripping and stumbling without subsequent striking against object, initial encounter
CPT/HCPCS: 73564; 99283-25; A9270

== ENCOUNTER → 2019-10-12 | Outpatient (CLI) | payer OTHER | LOC: LAB 09:27 → LAB SHORT 09:27 | DX: N39.0 Urinary tract infection, site not specified (principal) | CPT/HCPCS: 87077; 87086; 87186 ==

== ENCOUNTER 2020-01-12 23:46 | Emergency (ER) | payer OTHER ==
[~2020-01-12] VITALS: Ht 162.6 cm; Wt 130.2 kg
[2020-01-13] MEDS ORDERED: BASAGLAR K100 UNIT/1 (00:08)
[2020-01-13] MEDS ORDERED: Cleocin HCl300 MG PO (00:17)
== END 2020-01-13 00:27 | disposition home or self-care (01) ==
LOC: ER 23:46
DX: L03.116 Cellulitis of left lower limb (principal); L02.416 Cutaneous abscess of left lower limb; Z88.2 Allergy status to sulfonamides; Z91.018 Allergy to other foods; Z79.4 Long term (current) use of insulin; Z79.899 Other long term (current) drug therapy; E11.9 Type 2 diabetes mellitus without complications; E66.9 Obesity, unspecified; Z68.42 Body mass index [BMI] 45.0-49.9, adult; F17.210 Nicotine dependence, cigarettes, uncomplicated
CPT/HCPCS: 99282

== ENCOUNTER → 2020-09-19 | Outpatient (CLI) | payer OTHER ==
[~2020-09-19] MED LIST changes: +BASAGLAR K100 UNIT/1; +CEFD300 PO; +Cleocin HCl300 MG PO; +IBU600 MG PO
== END ==
LOC: LAB SHORT 11:30 → LAB 11:30
DX: N12 Tubulo-interstitial nephritis, not specified as acute or chronic (principal)
CPT/HCPCS: 87077; 87086; 87186

== ENCOUNTER 2020-12-15 01:47 | Emergency (ER) | payer OTHER ==
[~2020-12-15] VITALS: Ht 162.6 cm; Wt 131.5 kg
[~2020-12-15 01:47] MED LIST changes: -CEFD300 PO; -IBU600 MG PO
[2020-12-15 02:22] LABS: Source, Urine Clean Catch
[2020-12-15 02:33] LABS: Appearance, Urine Hazy (Clear); Bilirubin, Urine Neg (Neg); Blood, Urine 2+ (Neg); Color, Urine Yellow (P-Yellow); Glucose Qualitative, Urine Neg (Neg); Ketones, Urine 1+ (Neg); Leukocyte Esterase, Urine 3+ (Neg); Nitrite, Urine Neg (Neg); Protein, Urine 2+ (Neg); Specific Gravity, Urine 1.025 (1.003-1.022); Urobilinogen, Urine NORM (Normal)
[2020-12-15 02:43] LABS: BASOPHILS ABSOLUTE AUTO 0.07 K/mm3 (0.00-0.23); BASOPHILS PERCENT AUTO 1 % (0-2); EOSINOPHILS ABSOLUTE AUTO 0.14 K/mm3 (0.00-0.68); EOSINOPHILS PERCENT AUTO 2 % (0-6); Hematocrit 36.3 % (33.0-51.0); Hemoglobin 12.2 g/dL (11.5-16.0); IMMATURE GRAN ABSOLUTE AUTO 0.09 K/mm3 (0.00-0.10); IMMATURE GRAN PERCENT AUTO 1 % (0-1); LYMPHOCYTES ABSOLUTE AUTO 1.35 K/mm3 (0.84-5.20); LYMPHOCYTES PERCENT AUTO 16 % (21-46); MONOCYTES ABSOLUTE AUTO 0.42 K/mm3 (0.16-1.47); MONOCYTES PERCENT AUTO 5 % (4-13); Mean Corpuscular HGB 30.4 pg (26.0-34.0); Mean Corpuscular HGB Conc 33.6 g/dL (31.5-36.5); Mean Corpuscular Volume 91 fL (80-100); Mean Platelet Volume 9.4 fL (9.1-12.4); NEUTROPHILS ABSOLUTE AUTO 6.64 K/mm3 (1.96-9.15); NEUTROPHILS PERCENT AUTO 76 % (41-73); Platelet Count 288 K/mm3 (150-400); RDW Coefficient Variation 15.5 % (11.7-14.2); RDW Standard Deviation 51.1 fL (35.1-46.3); Red Blood Cell Count 4.01 M/mm3 (3.80-5.20); White Blood Cell Count 8.71 K/mm3 (4.00-11.30)
[2020-12-15 02:49] LABS: Bacteria Many /hpf; Red Blood Cells, Urine 0-2 /hpf (0-2); Squamous Epithelial Cells Not Seen /hpf (Few); White Blood Cells, Urine TNTC /hpf (0-5)
[2020-12-15 02:57] LABS: Alanine Aminotransfer (ALT/SGP 21 U/L (12-78); Albumin, Blood 3.7 g/dL (3.4-5.0); Albumin/Globulin Ratio 0.9 (0.8-1.8); Alk Phos 68 U/L (50-136); Anion Gap 9 mmol/L (6-16); Aspartate Aminotrans (AST/SGOT 21 U/L (12-37); Bilirubin, Total 0.4 mg/dL (0.1-1.0); Blood Urea Nitrogen 16 mg/dL (8-24); Bun/Creatinine Ratio 13.4 (12.0-20.0); CO2, Blood 24 mmol/L (21-32); Calcium, Blood 10.2 mg/dL (8.5-10.1); Chloride, Blood 100 mmol/L (98-108); Creatinine, Blood 1.19 mg/dL (0.40-1.00); Globulin, Blood 3.9 g/dL (2.2-4.0); Glomerular Filtration Rate 52 (60-); Glucose, Blood 234 mg/dL (70-99); Potassium, Blood 3.8 mmol/L (3.5-5.5); Sodium, Blood 133 mmol/L (136-145); Total Protein, Blood 7.6 g/dL (6.4-8.2)
[2020-12-15] MEDS ORDERED: CEFD300 PO (03:34)
[2020-12-15] MEDS ORDERED: IBU600 MG PO (03:34)
== END 2020-12-15 04:08 | disposition home or self-care (01) ==
LOC: ER 01:47
PROVIDERS: Emergency Medicine
DX: N39.0 Urinary tract infection, site not specified (principal); N83.202 Unspecified ovarian cyst, left side; N83.201 Unspecified ovarian cyst, right side; E11.9 Type 2 diabetes mellitus without complications; E03.9 Hypothyroidism, unspecified; F17.210 Nicotine dependence, cigarettes, uncomplicated; Z88.2 Allergy status to sulfonamides; Z91.018 Allergy to other foods; Z79.4 Long term (current) use of insulin; Z79.899 Other long term (current) drug therapy
CPT/HCPCS: 36415; 76830; 76856; 80053; 81001; 81025; 85025; 87077; 87086; 87186; 96374; 96375; 99284-25; J0696; J1885; J2270

== ENCOUNTER 2021-02-22 23:19 | Emergency (ER) | payer OTHER ==
[~2021-02-22] VITALS: Ht 162.6 cm; Wt 129.3 kg
[~2021-02-22 23:19] MED LIST changes: +CEFD300 PO; +IBU600 MG PO
== END 2021-02-23 02:43 | disposition home or self-care (01) ==
LOC: ER 23:19
DX: S93.402A Sprain of unspecified ligament of left ankle, initial encounter (principal); E11.9 Type 2 diabetes mellitus without complications; E03.9 Hypothyroidism, unspecified; F17.210 Nicotine dependence, cigarettes, uncomplicated; X50.1XXA Overexertion from prolonged static or awkward postures, initial encounter
CPT/HCPCS: 73610; 99283-25

== ENCOUNTER 2021-03-06 00:38 | Emergency (ER) | payer OTHER ==
[~2021-03-06] VITALS: Ht 162.6 cm; Wt 133.8 kg
== END 2021-03-06 04:50 | disposition home or self-care (01) ==
LOC: ER 00:38
DX: S99.912A Unspecified injury of left ankle, initial encounter (principal); E11.40 Type 2 diabetes mellitus with diabetic neuropathy, unspecified; E03.9 Hypothyroidism, unspecified; F17.210 Nicotine dependence, cigarettes, uncomplicated; Z88.2 Allergy status to sulfonamides; Z91.018 Allergy to other foods; Z79.899 Other long term (current) drug therapy; Z79.4 Long term (current) use of insulin; X58.XXXA Exposure to other specified factors, initial encounter
CPT/HCPCS: 99283; A9270

== ENCOUNTER → 2021-05-21 | Outpatient (CLI) | payer OTHER | END | disposition home or self-care (01) | LOC: LAB 13:57 → LAB SHORT 13:57 | DX: Z09 Encounter for follow-up examination after completed treatment for conditions other than malignant neoplasm (principal); Z87.440 Personal history of urinary (tract) infections | CPT/HCPCS: 87077; 87086; 87186 ==

== ENCOUNTER → 2021-10-09 | Outpatient (CLI) | payer OTHER | END | disposition home or self-care (01) | LOC: LAB 11:02 → LAB SHORT 11:02 | DX: R30.0 Dysuria (principal) | CPT/HCPCS: 87077; 87086; 87186 ==

== ENCOUNTER → 2021-10-29 | Outpatient (CLI) | payer OTHER | LOC: LAB SHORT 12:10 | DX: L03.90 Cellulitis, unspecified (principal); E11.9 Type 2 diabetes mellitus without complications; Z79.84 Long term (current) use of oral hypoglycemic drugs; Z79.4 Long term (current) use of insulin | CPT/HCPCS: 82043; 87070; 87075; 87077; 87147; 87186; 87205 ==

== ENCOUNTER → 2021-12-10 | Outpatient (CLI) | payer OTHER | LOC: LAB 11:32 → LAB SHORT 11:32 | DX: B99.9 Unspecified infectious disease (principal); B95.62 Methicillin resistant Staphylococcus aureus infection as the cause of diseases classified elsewhere | CPT/HCPCS: 87070; 87075; 87077; 87106; 87186; 87205 ==

== ENCOUNTER 2022-03-06 21:42 | Emergency (ER) | payer OTHER ==
[~2022-03-06] VITALS: Ht 162.6 cm; Wt 131.5 kg
== END 2022-03-07 00:17 | disposition home or self-care (01) ==
LOC: ER 21:42
DX: M79.671 Pain in right foot (principal); S90.851A Superficial foreign body, right foot, initial encounter; E11.9 Type 2 diabetes mellitus without complications; E05.90 Thyrotoxicosis, unspecified without thyrotoxic crisis or storm; F17.210 Nicotine dependence, cigarettes, uncomplicated; Z88.2 Allergy status to sulfonamides; Z91.018 Allergy to other foods; Z79.899 Other long term (current) drug therapy; Z79.4 Long term (current) use of insulin; X58.XXXA Exposure to other specified factors, initial encounter
CPT/HCPCS: 73630

== ENCOUNTER → 2022-06-11 | Outpatient (CLI) | payer OTHER | END | disposition home or self-care (01) | LOC: LAB 09:30 → LAB SHORT 09:30 | DX: R30.0 Dysuria (principal) | CPT/HCPCS: 87077; 87086; 87186 ==

== ENCOUNTER 2022-12-03 21:53 | Emergency (ER) | payer OTHER ==
[~2022-12-03] VITALS: Ht 162.6 cm; Wt 113.4 kg
[2022-12-03 22:36] LABS: BASOPHILS ABSOLUTE AUTO 0.07 K/mm3 (0.00-0.23); BASOPHILS PERCENT AUTO 1 % (0-2); EOSINOPHILS ABSOLUTE AUTO 0.27 K/mm3 (0.00-0.68); EOSINOPHILS PERCENT AUTO 2 % (0-6); IMMATURE GRAN ABSOLUTE AUTO 0.05 K/mm3 (0.00-0.10); IMMATURE GRAN PERCENT AUTO 0 % (0-1); LYMPHOCYTES ABSOLUTE AUTO 0.71 K/mm3 (0.84-5.20); LYMPHOCYTES PERCENT AUTO 6 % (21-46); MONOCYTES ABSOLUTE AUTO 0.53 K/mm3 (0.16-1.47); MONOCYTES PERCENT AUTO 5 % (4-13); Mean Corpuscular HGB 28.8 pg (26.0-34.0); Mean Corpuscular HGB Conc 32.4 g/dL (31.5-36.5); Mean Corpuscular Volume 89 fL (80-100); NEUTROPHILS ABSOLUTE AUTO 10.24 K/mm3 (1.96-9.15); NEUTROPHILS PERCENT AUTO 86 % (41-73); Platelet Count 282 K/mm3 (150-400); RDW Coefficient Variation 14.8 % (11.7-14.2); RDW Standard Deviation 47.8 fL (35.1-46.3); Red Blood Cell Count 4.16 M/mm3 (3.80-5.20); White Blood Cell Count 11.87 K/mm3 (4.00-11.30)
[2022-12-03 22:44] LABS: Source, Urine Clean Catch
[2022-12-03 22:59] LABS: Albumin, Blood 3.5 g/dL (3.4-5.0); Albumin/Globulin Ratio 0.9 (0.8-1.8); Bilirubin, Total 0.5 mg/dL (0.1-1.0); Bun/Creatinine Ratio 19.5 (12.0-20.0); Calcium, Blood 9.7 mg/dL (8.5-10.1); Creatinine, Blood 1.33 mg/dL (0.40-1.00); Globulin, Blood 3.9 g/dL (2.2-4.0); Potassium, Blood 3.9 mmol/L (3.5-5.5); Total Protein, Blood 7.4 g/dL (6.4-8.2)
[2022-12-03 23:02] LABS: Bilirubin, Urine Neg (Neg); Blood, Urine 4+ (Neg); Glucose Qualitative, Urine 4+ (Neg); Ketones, Urine Neg (Neg); Leukocyte Esterase, Urine 3+ (Neg); Nitrite, Urine Pos (Neg); Protein, Urine 3+ (Neg); Specific Gravity, Urine 1.015 (1.003-1.022); Urobilinogen, Urine NORM (Normal)
[2022-12-03 23:19] LABS: Appearance, Urine Cloudy (Clear); Color, Urine Yellow (P-Yellow)
[2022-12-03] MEDS ORDERED: SEMGLEE (Y100 UNIT/2 SC (23:19)
[2022-12-03] MEDS ORDERED: JARDIANCE25 MG PO (23:20)
[2022-12-03] MEDS ORDERED: BENZ100A PO (23:20)
[2022-12-03] MEDS ORDERED: VITAMIN D5000 UNIT PO (23:21)
[2022-12-03] MEDS ORDERED: ESCI10 (23:21)
[2022-12-03 23:23] LABS: Bacteria Many /hpf; Red Blood Cells, Urine 25-50 /hpf (0-2); Squamous Epithelial Cells Rare /hpf (Few); White Blood Cells, Urine TNTC /hpf (0-5)
[2022-12-03] MEDS ORDERED: CEPH500 PO (23:51)
[2022-12-04] VITALS: BP 142/63
== END 2022-12-04 00:35 | disposition home or self-care (01) ==
LOC: ER 21:53
PROVIDERS: Physician Assistant
DX: N12 Tubulo-interstitial nephritis, not specified as acute or chronic (principal); Z88.2 Allergy status to sulfonamides; Z91.018 Allergy to other foods; Z79.899 Other long term (current) drug therapy; Z79.84 Long term (current) use of oral hypoglycemic drugs
CPT/HCPCS: 36415; 80053; 81001; 85025; 87086; 87186; 96374; 99284-25; A9270; J0696

== ENCOUNTER → 2023-08-25 | Outpatient (CLI) | payer OTHER ==
[~2023-08-25] MED LIST changes: +BENZ100A PO; +ESCI10; +JARDIANCE25 MG PO; +SEMGLEE (Y100 UNIT/2 SC; +VITAMIN D5000 UNIT PO
== END ==
LOC: LAB 14:35 → LAB SHORT 14:35
PROVIDERS: Family Medicine
DX: Z12.4 Encounter for screening for malignant neoplasm of cervix (principal)
CPT/HCPCS: G0123

== ENCOUNTER → 2024-08-24 | Outpatient (CLI) | payer OTHER | LOC: LAB 12:09 → LAB SHORT 12:09 | DX: A49.02 Methicillin resistant Staphylococcus aureus infection, unspecified site (principal) | CPT/HCPCS: 87070; 87075; 87077; 87147; 87186; 87205 ==

== ENCOUNTER 2024-12-21 19:25 | Observation (INO) | payer OTHER ==
[~2024-12-21] VITALS: Ht 162.6 cm; Wt 110.9 kg
[~2024-12-21 19:25] MED LIST changes: -ATOR10 PO; +Enoxaparin 40 MG/0.4 ML SYR SC SCH; +GLUCOPHAGE1000 M1 PO; -METF500C PO
[2024-12-21 20:13] LABS: BASOPHILS ABSOLUTE AUTO 0.07 K/mm3 (0.00-0.23); BASOPHILS PERCENT AUTO 1 % (0-2); EOSINOPHILS ABSOLUTE AUTO 0.12 K/mm3 (0.00-0.68); EOSINOPHILS PERCENT AUTO 1 % (0-6); Hematocrit 37.6 % (33.0-51.0); Hemoglobin 12.5 g/dL (11.5-16.0); IMMATURE GRAN ABSOLUTE AUTO 0.07 K/mm3 (0.00-0.10); IMMATURE GRAN PERCENT AUTO 1 % (0-1); LYMPHOCYTES ABSOLUTE AUTO 0.67 K/mm3 (0.84-5.20); LYMPHOCYTES PERCENT AUTO 6 % (21-46); MONOCYTES ABSOLUTE AUTO 0.59 K/mm3 (0.16-1.47); MONOCYTES PERCENT AUTO 5 % (4-13); Mean Corpuscular HGB 27.7 pg (26.0-34.0); Mean Corpuscular HGB Conc 33.2 g/dL (31.5-36.5); Mean Corpuscular Volume 83 fL (80-100); Mean Platelet Volume 9.1 fL (9.1-12.4); NEUTROPHILS PERCENT AUTO 87 % (41-73); Platelet Count 253 K/mm3 (150-400); RDW Standard Deviation 48.5 fL (35.1-46.3); Red Blood Cell Count 4.51 M/mm3 (3.80-5.20); White Blood Cell Count 11.82 K/mm3 (4.00-11.30)
[2024-12-21 20:22] LABS: Source, Urine Clean Catch
[2024-12-21 20:40] LABS: Appearance, Urine Hazy (Clear); Bilirubin, Urine Neg (Neg); Blood, Urine 4+ (Neg); Glucose Qualitative, Urine 4+ (Neg); Ketones, Urine Neg (Neg); Leukocyte Esterase, Urine 3+ (Neg); Nitrite, Urine Pos (Neg); Protein, Urine 3+ (Neg); Specific Gravity, Urine 1.015 (1.003-1.022); Urobilinogen, Urine NORM (Normal)
[2024-12-21 20:45] LABS: Color, Urine Yellow (P-Yellow)
[2024-12-21 20:47] LABS: White Blood Cells, Urine TNTC /hpf (0-5)
[2024-12-21 20:48] LABS: Bacteria Many /hpf; Squamous Epithelial Cells Few /hpf (Few)
[2024-12-21 21:00] LABS: Albumin/Globulin Ratio 0.3 (0.8-1.8); Bilirubin, Total 0.6 mg/dL (0.1-1.0); Calcium, Blood 10.3 mg/dL (8.5-10.1); Creatinine, Blood 1.11 mg/dL (0.40-1.00); Globulin, Blood 5.9 g/dL (2.2-4.0); Potassium, Blood 4.1 mmol/L (3.5-5.5); Total Protein, Blood 7.9 g/dL (6.4-8.2)
[2024-12-21] MEDS ORDERED: Ketorolac Tromethamine 30mg Vial IV ONE (21:15)
[2024-12-21] MEDS ORDERED: NS 1,000 ML IV SCH ×2 (21:15→23:25)
[2024-12-21] MEDS ORDERED: CefTRIAXone Sodium 1,000 MG in NS 50 ML IV ONE (21:25)
[2024-12-21] MEDS ORDERED: Morphine Sulfate 4 MG/1 ML Injection IV ONE (22:00)
[2024-12-21] MEDS ORDERED: BENZ100A PO (23:08)
[2024-12-21] MEDS ORDERED: Chantix1 MG PO (23:08)
[2024-12-21] MEDS ORDERED: ESCI10 PO (23:10)
[2024-12-21] MEDS ORDERED: JARDIANCE25 MG PO (23:11)
[2024-12-21] MEDS ORDERED: LISI5 PO (23:14)
[2024-12-21] MEDS ORDERED: INSULANPEN SC (23:15)
[2024-12-21] MEDS ORDERED: Acetaminophen 325 MG TABLET PO PRN (23:25)
[2024-12-21] MEDS ORDERED: Ondansetron HCl 2 MG / ML 2ML Vial IV PRN (23:25)
[2024-12-21] MEDS ORDERED: FentaNYL Citrate 50 MCG/ML 2 ML Injection IV PRN (23:25)
[2024-12-21] MEDS ORDERED: Enoxaparin 40 MG/0.4 ML SYR SC SCH (23:48)
[2024-12-21 23:50] VITALS: BP 153/90
[2024-12-21] MEDS ORDERED: Albumin (Human) 25gm/100ml 100 ML IV ONE (23:55)
[2024-12-21] MEDS ORDERED: BASAGLAR K100 UNIT/1 SC (23:57)
[2024-12-22 04:04] VITALS: BP 140/69
--- NOTE | 2024-12-22 04:26 | NUR ---
PT ADMITTED FROM ED WITH LEFT FLANK PAIN, IS FAMILIAR WITH THIS SHE HAS THESE TYPE OF INFECTIONS FREQUENTLY. PT ON IVABX, IVF, AND IS CURRENTLY NPO FOR POTENTIAL FURTHER TESTING/ PROCEDURES. SHE HAS RECIEVED ALBUMIN THIS SHIFT, DENIES PAIN. TELE IS NSR IN 80'S, HAS CMG ON RIGHT ARM AND BG WAS 141 WHEN ARRIVED TO UNIT. INDEPENDENT WITH MOBILITY IN ROOM. LIVES WITH SPOUSE.
[2024-12-22 05:43] LABS: BASOPHILS ABSOLUTE AUTO 0.05 K/mm3 (0.00-0.23); BASOPHILS PERCENT AUTO 1 % (0-2); EOSINOPHILS PERCENT AUTO 1 % (0-6); Hematocrit 34.4 % (33.0-51.0); Hemoglobin 11.1 g/dL (11.5-16.0); IMMATURE GRAN ABSOLUTE AUTO 0.06 K/mm3 (0.00-0.10); IMMATURE GRAN PERCENT AUTO 1 % (0-1); LYMPHOCYTES ABSOLUTE AUTO 0.51 K/mm3 (0.84-5.20); LYMPHOCYTES PERCENT AUTO 7 % (21-46); MONOCYTES ABSOLUTE AUTO 0.44 K/mm3 (0.16-1.47); MONOCYTES PERCENT AUTO 6 % (4-13); Mean Corpuscular HGB Conc 32.3 g/dL (31.5-36.5); Mean Corpuscular Volume 87 fL (80-100); Mean Platelet Volume 9.5 fL (9.1-12.4); NEUTROPHILS ABSOLUTE AUTO 6.41 K/mm3 (1.96-9.15); NEUTROPHILS PERCENT AUTO 85 % (41-73); Platelet Count 209 K/mm3 (150-400); RDW Coefficient Variation 15.9 % (11.7-14.2); Red Blood Cell Count 3.97 M/mm3 (3.80-5.20); White Blood Cell Count 7.57 K/mm3 (4.00-11.30)
[2024-12-22 06:02] LABS: Albumin, Blood 3.7 g/dL (3.4-5.0); Albumin/Globulin Ratio 1.1 (0.8-1.8); Bilirubin, Total 0.4 mg/dL (0.1-1.0); Bun/Creatinine Ratio 27.3 (12.0-20.0); Calcium, Blood 9.3 mg/dL (8.5-10.1); Creatinine, Blood 1.21 mg/dL (0.40-1.00); Globulin, Blood 3.4 g/dL (2.2-4.0); Potassium, Blood 3.6 mmol/L (3.5-5.5); Total Protein, Blood 7.1 g/dL (6.4-8.2)
[2024-12-22] MEDS ORDERED: Magnesium Hydroxide Conc 10 ML UDC PO PRN (06:30)
[2024-12-22] MEDS ORDERED: Insulin Human Lispro 100 Units/ML 3ML Syringe SC SCH (07:30)
[2024-12-22 08:17] VITALS: BP 138/75
[2024-12-22] MEDS ORDERED: Sennosides 8.6 MG Tab PO SCH (09:00)
[2024-12-22] MEDS ORDERED: Cyclobenzaprine HCl 10 MG Tab PO SCH (09:00)
[2024-12-22] MEDS ORDERED: Citalopram Hydrobromide 20 MG Tab PO SCH (09:00)
[2024-12-22] MEDS ORDERED: Levothyroxine Sodium 0.15 MG Tab PO SCH (09:00)
[2024-12-22] MEDS ORDERED: Varenicline Tartrate 1 MG Tablet PO SCH (09:00)
[2024-12-22] MEDS ORDERED: Insulin Glargine-Yfgn 100 Unit/mL 3 ML SYR SC SCH (09:00)
[2024-12-22] MEDS ORDERED: Lisinopril 5 MG Tab PO SCH (09:00)
[2024-12-22 12:11] VITALS: BP 117/67
[2024-12-22 15:57] VITALS: BP 143/78
--- NOTE | 2024-12-22 17:41 | NUR ---
SHIFT SUMMARY PT A&OX4, VSS, AMB IND, TOLERATING PO, VOIDING, AND DENIED PAIN. URINE AND NARE CULTURE PENDING. POSSIBLE D/C TOMORROW. NO ACUTE CHANGES. CALL LIGHT WITHIN REACH AND PT ABLE TO MAKE NEEDS KNOWN.
[2024-12-22 19:58] VITALS: BP 149/77
[2024-12-22] MEDS ORDERED: CefTRIAXone Sodium 1,000 MG in NS 100 ML IV SCH (21:00)
[2024-12-22 23:50] VITALS: BP 138/75
[2024-12-23 04:09] VITALS: BP 136/72
--- NOTE | 2024-12-23 04:33 | NUR ---
PT A&O X4, VS WNL, TELE NSR WITH 1ST DEGREE. CBG 279 WITH NO COVERAGE ORDERED. PT DENIES PAIN, INDEPENDENT WITH MOBILITY. REMAINS ON IVABX. AWAITING FOR URINE CX'S. WILL D/C HOME WITH SPOUSE. UTILIZES CALL SYSTEM APPROPRIATELY.
[2024-12-23 06:14] LABS: BASOPHILS ABSOLUTE AUTO 0.06 K/mm3 (0.00-0.23); BASOPHILS PERCENT AUTO 1 % (0-2); EOSINOPHILS PERCENT AUTO 4 % (0-6); Hematocrit 34.4 % (33.0-51.0); Hemoglobin 11.1 g/dL (11.5-16.0); IMMATURE GRAN ABSOLUTE AUTO 0.03 K/mm3 (0.00-0.10); IMMATURE GRAN PERCENT AUTO 1 % (0-1); LYMPHOCYTES ABSOLUTE AUTO 0.51 K/mm3 (0.84-5.20); LYMPHOCYTES PERCENT AUTO 10 % (21-46); MONOCYTES ABSOLUTE AUTO 0.35 K/mm3 (0.16-1.47); MONOCYTES PERCENT AUTO 7 % (4-13); Mean Corpuscular HGB 27.9 pg (26.0-34.0); Mean Corpuscular HGB Conc 32.3 g/dL (31.5-36.5); Mean Corpuscular Volume 86 fL (80-100); Mean Platelet Volume 9.7 fL (9.1-12.4); NEUTROPHILS ABSOLUTE AUTO 4.06 K/mm3 (1.96-9.15); NEUTROPHILS PERCENT AUTO 78 % (41-73); Platelet Count 199 K/mm3 (150-400); RDW Coefficient Variation 15.9 % (11.7-14.2); RDW Standard Deviation 50.4 fL (35.1-46.3); Red Blood Cell Count 3.98 M/mm3 (3.80-5.20); White Blood Cell Count 5.21 K/mm3 (4.00-11.30)
[2024-12-23 06:36] LABS: Bun/Creatinine Ratio 26.7 (12.0-20.0); Calcium, Blood 9.5 mg/dL (8.5-10.1); Creatinine, Blood 1.16 mg/dL (0.40-1.00); Potassium, Blood 4.1 mmol/L (3.5-5.5)
[2024-12-23] MEDS ORDERED: Mupirocin Calcium Oint 1 GM SCH (08:00)
--- NOTE | 2024-12-23 08:21 | NUR ---
CALLED DR. GARDINER, SHE APPROVED PATIENT REPORTING BLOOD GLUCOSE READING FROM CONTINUOUS BLOOD GLUCOSE MONITOR, PATIENT REPORTED 164 THIS MORNING. INFORMED DR. GARDINER OF PATIENT REPORT THAT SHE HAS BEEN TAKING 45 UNITS OF HER LONG ACTING INSULIN TWICE A DAY, AND LAST NIGHTS BLOOD GLUCOSE WAS 274 WITH 15 UNITS OF LONG ACTING. DR. GARDINER ADVISED TO GIVE THE PATIENT 25 UNITS OF LONG ACTING INSULIN THIS AM AND THAT SHE WILL BE DISCHARING TODAY.
[2024-12-23 08:22] VITALS: BP 125/67
[2024-12-23] MEDS ORDERED: Insulin Glargine-Yfgn 100 Unit/mL 3 ML SYR SC SCH (09:00)
[2024-12-23] MEDS ORDERED: MASOPHEN325 M4 PO (10:41)
[2024-12-23] MEDS ORDERED: VISBIOME 112.51 EACH PO (10:43)
[2024-12-23] MEDS ORDERED: MUPIROCIN22 G4 (10:43)
[2024-12-23] MEDS ORDERED: CEPH500 PO (10:44)
--- NOTE | 2024-12-23 12:06 | NUR ---
PATIENT DISCHARGED HOME ON KEFLEX, MEDICATIONS SENT TO [facility] VIA FAX. IV REMOVED WITHOUT COMPLICATION. EDUCATION PROVIDED ON FLANK PAIN, KIDNEY INFECTION, HYDRONEPHROSIS, DM II. ADVISED PATIENT TO FOLLOW-UP WITH PCP WITHIN 7 DAYS. LEFT WITH , ALL BELONGINGS LEFT WITH PATIENT. LEFT VIA WHEELCHAIR. IV REMOVED WITHOUT COMPLICATIONS. TELE SENT BACK.
== END 2024-12-23 11:59 | disposition home or self-care (01) ==
LOC: ER 19:25 → MEDS 19:26 → ERHOLD 19:26 → MEDS 23:40
PROVIDERS: Internal Medicine; Student in an Organized Health Care Education/Training Program; ADMIT Internal Medicine
DX: A41.9 Sepsis, unspecified organism (principal); N13.6 Pyonephrosis; N12 Tubulo-interstitial nephritis, not specified as acute or chronic; E11.22 Type 2 diabetes mellitus with diabetic chronic kidney disease; N18.30 Chronic kidney disease, stage 3 unspecified; E78.5 Hyperlipidemia, unspecified; E03.9 Hypothyroidism, unspecified; E28.2 Polycystic ovarian syndrome; E88.09 Other disorders of plasma-protein metabolism, not elsewhere classified; E83.52 Hypercalcemia; F17.210 Nicotine dependence, cigarettes, uncomplicated; E66.9 Obesity, unspecified; Z68.41 Body mass index [BMI] 40.0-44.9, adult; Z79.4 Long term (current) use of insulin; Z79.890 Hormone replacement therapy; Z79.899 Other long term (current) drug therapy; Z88.2 Allergy status to sulfonamides; Z91.018 Allergy to other foods
CPT/HCPCS: 36415; 74176; 80048; 80053; 81001; 83690; 83880; 84702; 85025; 87077; 87086; 87186; 93005; 93010; 96365-59; 96366; 96367; 96372; 96375; 99285-25; A9270; G0378; J0696; J1650; J1815; J1885; J2270; J7030; P9047